=== PATIENT | female | born 1975 | race Two or more races ===

== ENCOUNTER 2023-09-13 12:53 | Inpatient (IN) | payer OTHER ==
[~2023-09-13] VITALS: Ht 157.5 cm; Wt 115.2 kg
[2023-09-13] MEDS ORDERED: TENORMIN50 M1 (13:31)
[2023-09-13] MEDS ORDERED: GLIPIZIDE10 MG PO (13:32)
[2023-09-13] MEDS ORDERED: LOSARTAN POTASS50 MG PO (13:32)
[2023-09-13] MEDS ORDERED: ACTOS15 MG (13:32)
[2023-09-13] MEDS ORDERED: JARDIANCE10 MG PO (13:33)
[2023-09-13] MEDS ORDERED: METFORMIN HCL1000 M2 (13:33)
[2023-09-13] MEDS ORDERED: GEMFIBROZIL600 MG PO (13:34)
[2023-09-13] MEDS ORDERED: 0.9 % SODIUM CHLORIDE 1,000 ML IV STA (14:05)
[2023-09-13] MEDS ORDERED: ONDANSETRON HCL 2 MG/ML VIAL IV STA (14:07)
[2023-09-13 14:43] LABS: HEMATOCRIT 27.1 % (36.0-45.00); MEAN CELL VOLUME 79.7 fL (80.00-100.00); MEAN CORPUSCULAR HGB CONC 32.1 g/dl (32.0-36.0); PLATELET COUNT 436 K/uL (150-450); RED CELL DISTRIBUTION WIDTH 17.3 % (11.5-14.5)
[2023-09-13 14:44] LABS: HEMOGLOBIN 8.7 g/dL (12.0-15.00); MEAN CORPUSCULAR HEMOGLOBIN 25.5 pg (27.00-32.0)
[2023-09-13 14:57] LABS: CALCIUM 9.4 mg/dL (8.5-10.1); CREATININE SERUM 1.49 mg/dL (0.55-1.02); GFR 37.04; POTASSIUM 3.76 mEq/L (3.5-5.1)
[2023-09-13 16:15] LABS: URINE APPEARANCE Cloudy; URINE BILIRRUBIN Negative (NEGATIVE); URINE BLOOD Small; URINE COLOR Yellow; URINE LEUKOCYTE Small; URINE NITRATE Negative; URINE PROTEIN 30 (NEGATIVE); URINE UROBILINOGEN 0.2 E.U./dl
[2023-09-13 16:19] LABS: URINE BACTERIA 4121.2 uL (0.0-1933); URINE EPITHELIAL CELLS 54.5 uL (0.0-38.8); URINE RBC 20.8 uL (0.0-20.8); URINE WBC 315.6 uL (0.0-23.2)
[2023-09-13 16:48] LABS: URINE GLUCOSE >=1000 MG/DL (NEGATIVE)
[2023-09-13] MEDS ORDERED: PIPERACILLIN/TAZOBACTAM SODIUM 3.375 GM in DEXTROSE 5 % IN WATER 100 ML IV SCH (21:41)
[2023-09-13] MEDS ORDERED: DEXTROSE 50 % IN WATER 0.5 G/ML DISP.SYRIN IV PRN (21:45)
[2023-09-13] MEDS ORDERED: 0.9 % SODIUM CHLORIDE 1,000 ML IV SCH (21:45)
[2023-09-13] MEDS ORDERED: INSULIN LISPRO 1,000 UNIT/10 ML UNITS SUBCUTANEO PRN (21:45)
[2023-09-13] MEDS ORDERED: ONDANSETRON HCL 4 MG in 0.9 % SODIUM CHLORIDE 50 ML IV PRN (21:45)
[2023-09-13] MEDS ORDERED: ACETAMINOPHEN 500 MG GEL..CAP PO PRN (21:45)
[2023-09-13] MEDS ORDERED: KETOROLAC TROMETHAMINE 15 MG VIAL IV PRN (23:45)
[2023-09-14 00:41] LABS: INR 1.04; PARTIAL THROMBOPLASTIN TIME 28.9 SECONDS (22.0-34.0); PROTHROMBIN TIME 10.9 SECONDS (9.0-11.5)
[2023-09-14] MEDS ORDERED: Cyanocobalamin/Mecobalamin 1 TAB.SL SL SCH (09:00)
[2023-09-14] MEDS ORDERED: GEMFIBROZIL 600 MG TABLET PO SCH (09:00)
[2023-09-14] MEDS ORDERED: VITAMIN B COMPLEX 1 EACH PO SCH (09:00)
[2023-09-14] MEDS ORDERED: SOD FERRIC GLUC COMPLX/SUCROSE 125 MG in 0.9 % SODIUM CHLORIDE 100 ML IV SCH (09:00)
[2023-09-14] MEDS ORDERED: ATENOLOL 50 MG TABLET PO SCH (09:00)
[2023-09-14] MEDS ORDERED: IRON FUM,PS/FOLIC/BCOMP,C NO.9 1 CAP CAPSULE PO SCH (09:00)
[2023-09-14] MEDS ORDERED: FAMOTIDINE/PF 20 MG in 0.9 % SODIUM CHLORIDE 8 ML IV PUSH SCH (09:00)
[2023-09-14] MEDS ORDERED: CEFTRIAXONE SODIUM 2,000 MG VIAL IV SCH (12:29)
[2023-09-15] MEDS ORDERED: SODIUM CHLORIDE 0.45 % 1,000 ML IV SCH (08:30)
[2023-09-15 08:55] LABS: HEMATOCRIT 25.5 % (36.0-45.00); HEMOGLOBIN 8.1 g/dL (12.0-15.00); MEAN CELL VOLUME 80.3 fL (80.00-100.00); MEAN CORPUSCULAR HEMOGLOBIN 25.4 pg (27.00-32.0); MEAN CORPUSCULAR HGB CONC 31.9 g/dl (32.0-36.0); PLATELET COUNT 450 K/uL (150-450); RED BLOOD COUNT 3.18 M/uL (4.00-6.00); RED CELL DISTRIBUTION WIDTH 17.5 % (11.5-14.5)
[2023-09-15] MEDS ORDERED: RIVAROXABAN 10 MG TAB PO SCH (09:00)
[2023-09-15] MEDS ORDERED: LOSARTAN POTASSIUM 50 MG TABLET PO SCH (09:00)
[2023-09-15 09:08] LABS: ALBUMIN 2.2 gm/dL (3.4-5.0); BILIRUBIN TOTAL 0.24 mg/dL (0.3-1.2); CALCIUM 8.7 mg/dL (8.5-10.1); CREATININE SERUM 0.9 mg/dL (0.55-1.02); GFR 66.27; GLOBULINA 4.5 G/DL (2.4-3.5); POTASSIUM 4.49 mEq/L (3.5-5.1); TOTAL PROTEIN 6.7 gm/dL (6.4-8.2); TSH 2.05 uIU/mL (0.358-3.74)
[2023-09-15] MEDS ORDERED: TRAMADOL HCL 50 MG TABLET PO STA (09:48)
[2023-09-15] MEDS ORDERED: TRAMADOL HCL 50 MG TABLET PO PRN (10:00)
[2023-09-15 15:56] LABS: URINE APPEARANCE Clear; URINE BILIRRUBIN Negative (NEGATIVE); URINE BLOOD Moderate; URINE COLOR Yellow; URINE LEUKOCYTE Trace; URINE NITRATE Negative; URINE PROTEIN Trace (NEGATIVE); URINE UROBILINOGEN 0.2 E.U./dl
[2023-09-15 16:00] LABS: URINE BACTERIA 13.8 uL (0.0-1933); URINE EPITHELIAL CELLS 16.2 uL (0.0-38.8); URINE RBC 72.4 uL (0.0-20.8); URINE WBC 131.6 uL (0.0-23.2)
[2023-09-15 16:04] LABS: URINE GLUCOSE >=1000 MG/DL (NEGATIVE)
[2023-09-16 05:55] LABS: HEMATOCRIT 25.1 % (36.0-45.00); MEAN CORPUSCULAR HGB CONC 32.3 g/dl (32.0-36.0); PLATELET COUNT 441 K/uL (150-450); RED CELL DISTRIBUTION WIDTH 16.9 % (11.5-14.5)
[2023-09-16 05:57] LABS: HEMOGLOBIN 8.1 g/dL (12.0-15.00); MEAN CORPUSCULAR HEMOGLOBIN 26.1 pg (27.00-32.0)
[2023-09-16 06:32] LABS: CALCIUM 8.7 mg/dL (8.5-10.1); CREATININE SERUM 0.73 mg/dL (0.55-1.02); GFR 84.39; POTASSIUM 4.95 mEq/L (3.5-5.1)
[2023-09-16] MEDS ORDERED: INSULIN LISPRO 1,000 UNIT/10 ML UNITS SUBCUTANEO SCH (08:00)
[2023-09-16] MEDS ORDERED: INSULIN GLARGINE,HUM.REC.ANLOG 1,000 UNITS/10 ML UNITS SUBCUTANEO SCH (09:00)
[2023-09-16] MEDS ORDERED: 0.9 % SODIUM CHLORIDE 1,000 ML IV SCH (09:12)
[2023-09-16] MEDS ORDERED: SODIUM CHLORIDE 0.45 % 1,000 ML IV SCH (10:00)
[2023-09-16 11:27] LABS: PLATELET ESTIMATE NORMAL (NORMAL)
[2023-09-16] MEDS ORDERED: FAMOtidine 40 MG TABLET PO SCH (21:00)
[2023-09-17] MEDS ORDERED: LOSARTAN POTASSIUM 50 MG TABLET PO SCH (09:00)
[2023-09-17] MEDS ORDERED: LOSARTAN POTASSIUM 25 MG TABLET PO SCH (09:00)
[2023-09-17 10:08] LABS: ob NEGATIVE (NEGATIVE)
[2023-09-17] MEDS ORDERED: LEVOFLOXACIN750 MG PO (21:20)
== END 2023-09-17 21:42 | disposition home or self-care (01) | DRG 690 ==
LOC: ER 12:53 → SEC-K 22:05 → MEDI 09-14 16:46
PROVIDERS: General Practice; Internal Medicine; Internal Medicine Endocrinology, Diabetes & Metabolism; Internal Medicine Hematology & Oncology; Internal Medicine Infectious Disease; ADMIT Internal Medicine; ATTEND Internal Medicine
PROC: BW21YZZ Computerized Tomography (CT Scan) of Abdomen and Pelvis using Other Contrast (ICD-10-PCS; principal; 2023-09-13)
DX: N12 Tubulo-interstitial nephritis, not specified as acute or chronic (principal); E87.1 Hypo-osmolality and hyponatremia; D64.9 Anemia, unspecified; N17.9 Acute kidney failure, unspecified; N39.0 Urinary tract infection, site not specified; B96.20 Unspecified Escherichia coli [E. coli] as the cause of diseases classified elsewhere; E11.65 Type 2 diabetes mellitus with hyperglycemia; Z79.4 Long term (current) use of insulin; E03.9 Hypothyroidism, unspecified